=== PATIENT | female | born 2000 | race Caucasian/White ===

== ENCOUNTER 2024-10-31 20:26 | Emergency (ER) | payer BC, OTHER ==
[2024-10-31] MEDS: Azithromycin 250 MG Tab PO STA (21:16)
== END 2024-10-31 21:52 | disposition home or self-care (01) ==
LOC: MW.ED 20:26
DX: J02.9 Acute pharyngitis, unspecified (principal); Z75.8 Other problems related to medical facilities and other health care; Z88.0 Allergy status to penicillin; Z79.899 Other long term (current) drug therapy
CPT/HCPCS: 99283; A9270